=== PATIENT | male | born 1975 | race Caucasian/White ===

== ENCOUNTER 2018-06-16 00:25 | Emergency (ER) | payer OTHER ==
[~2018-06-16] VITALS: Ht 180.3 cm; Wt 68.0 kg
--- OUTSIDE RECORDS SUMMARY | 2018-06-16 00:28 | XMS REPORT | Clinical Summary ---
Author Author [facility] Address Unknown Phone Unavailable Care Team Providers Care Roundsman Name Role Phone Asked, No Pcp PCP Unavailable Allergies Comments Active Allergy Reactions Severity Noted Date Bee Venom Protein (Honey 09/06/2017 Bee) Medications End Date Status Medication Sig Dispensed Refills Start Date 10/06/2017 hydrOXYzine (ATARAX) 25 Take 1 tablet 20 tablet 0 MG tablet (25 mg total) 8 by mouth every 8 (eight) hours as needed for itching for up to 30 days. 09/11/2017 methylPREDNISolone follow 21 tablet 0 (MEDROL DOSEPAK) 4 mg package 8 tablet directions 10/06/2017 famotidine (PEPCID) 20 MG Take 1 tablet 30 tablet 0 tablet (20 mg total) 8 by mouth 2 (two) times a day as needed (allergic reaction) for up to 30 days. Active Problems Not on file Encounters Care Team Description Date Type Specialty Steven Britton MD Itchy skin (Primary Dx); Allergic reaction, initial encounter 09/06/2017 Emergency Emergency Medicine after 06/15/2017 Social History Date Tobacco Use Types Packs/Day Years Used Current Every Day Smoker 0.5 Smokeless Tobacco: Current User Sex Assigned at Date Recorded Not on file Industry Job Start Date Occupation Not on file Not on file Not on file Travel End Travel History Travel Start No recent travel history available. Last Filed Vital Signs Time Taken Vital Sign Reading 09/06/2017 9:31 AM CDT Blood Pressure 117/74 09/06/2017 9:31 AM CDT Pulse 85 09/06/2017 9:31 AM CDT Temperature 36.7 C (98 F) 09/06/2017 9:31 AM CDT Respiratory Rate 15 09/06/2017 9:31 AM CDT Oxygen Saturation 98% - Inhaled Oxygen - Concentration - Weight - - Height - - Body Mass Index - Plan of Treatment Not on file Results Not on fileafter 06/15/2017 Insurance Payer Benefit Subscriber ID Type Phone Address Plan / Group BCBS BCBS OUT xxxxxxxxxxxx PPO OF STATE Advance Directives Patient has advance care planning documents on file. For more information, viv kincaid contact: [facility] [address] [place] [address]
[2018-06-16] MEDS ORDERED: TETRACAINE HCL 0.5% OPTH SOLN 4 ML BTL ONE (01:49)
--- NOTE | 2018-06-16 02:03 | NUR ---
TRANSFER INITIATED TO [facility]
[2018-06-16] MEDS ORDERED: HYDROCODONE/APAP 10MG-325MG TAB PO ONE (02:15)
[2018-06-16 04:51] VITALS: BP 132/79
== END 2018-06-16 04:53 | disposition home or self-care (01) ==
LOC: ER 00:25
DX: H57.11 Ocular pain, right eye (principal); S05.01XA Injury of conjunctiva and corneal abrasion without foreign body, right eye, initial encounter; S05.31XA Ocular laceration without prolapse or loss of intraocular tissue, right eye, initial encounter; Y99.0 Civilian activity done for income or pay
CPT/HCPCS: 99282

== ENCOUNTER → 2018-09-22 | Outpatient (CLI) | payer BC ==
[~2018-09-22] MED LIST: GADOBENATE DIMEGLUMINE 1 ML IV ONE
--- NOTE | 2018-09-22 15:49 | Diagnostic Imaging Report ---
EXAMINATION: MRI of the brain without contrast. HISTORY: Acute aphasia, inability to talk. COMPARISON: None. TECHNIQUE: Sagittal T2; axial DWI, T2, FLAIR, T1-IR, T2 gradient echo; coronal FLAIR. IMAGE QUALITY: Adequate. FINDINGS: Parenchyma: 1. Multiple mostly juxtacortical supratentorial ill-defined T2 and FLAIR hyperintense lesions, the largest one in the left inferior frontal (medial orbitofrontal gyri), measuring approximately 4.5 cm including the edema, with mild associated local mass effect, with sulci effacement, no midline shift. 2. Additional similar dominant lesions (1 to 3 cm diameter) are located in the left greater than right superior/middle frontal gyri, right superior temporal gyrus, left posterior superior/middle temporal gyri, left medial temporal lobe/uncus, left inferior parietal lobule. Some of these lesions present restricted diffusion, particularly the left superior frontal lesion. Smaller mostly juxta cortical FLAIR hyperintense foci are noted. 3. No hemorrhagic, acute or chronic infarcts. Skull: Unremarkable. Vessels: Expected flow voids present in the major arteries and dural sinuses. Extra-axial spaces: No abnormal signal intensity or mass effect. Brain volume: Within normal limits for age. Ventricles: No hydrocephalus or displacement. Foramen magnum: Unremarkable. Sella: Unremarkable. Paranasal / mastoid sinuses: No significant inflammatory disease. IMPRESSION: Multiple supratentorial mostly peripheral FLAIR hyperintense lesions, largest left superior frontal lesion has restricted diffusion. Differential diagnosis would include demyelinating disease (such as tumefactive MS), metastatic disease if the patient has a known primary, versus primary neoplasm such as SPINNER[employer] lymphoma among other causes. A contrast brain MRIs recommended. The findings were discussed with the requesting PA Eneida MISTRY, recommendation to send the patient to the ER and obtained contrast enhanced MRI was discussed. Signed by: Dr. Candelaria Hauser M.D. on 09/22/2018 3:46 PM
--- NOTE | 2018-09-22 16:59 | Diagnostic Imaging Report ---
History: Cannot speak Comparison studies: Precontrast MRI obtained earlier today. Technique: Postcontrast axial, sagittal and coronal T1. Intravenous contrast: 13 cc of MultiHance Findings: Most, but not all, of the T2 FLAIR hyperintense foci on the previous MRI, enhance following the intravenous injection of contrast. The enhancement pattern varies from ill-defined in the left superior frontal white matter (series 2, image 18) to focally intense and amorphous in the left orbitofrontal region (series 2, image 12) to linear periventricular along the margin of the body of the lateral ventricle (series 5, image 7) Two enhancing foci (left parietal and right anterior temporal) enhancement in an incomplete ring fashion which is very classic for an underlying demyelinating process such as multiple sclerosis. Otherwise, no changes compared to the precontrast MRI. IMPRESSION: 1. Most, but not all, of the T2 FLAIR hyperintensities on the previous MRI and hands following the intravenous injection of contrast. The enhancement pattern is variable throughout the brain but too "C" shaped enhancing foci (left parietal and right anterior temporal) strongly indicate this as a demyelinating process. 2. Otherwise, no changes when compared to the precontrast MRI. Signed by: Dr. Florentino Patel M.D. on 09/22/2018 4:56 PM
== END ==
LOC: MRI 13:48
PROVIDERS: ATTEND Family Medicine
DX: R47.01 Aphasia (principal)
CPT/HCPCS: 70551; 70552

== ENCOUNTER → 2018-10-05 | Outpatient (CLI) | payer BC ==
--- NOTE | 2018-10-05 10:37 | Diagnostic Imaging Report ---
History: Possible multiple sclerosis Comparison studies: MRI of the brain 09/22/2018 Technique: Precontrast spine: Sagittal T1, T2 and inversion recovery, axial T1 and T2 cervical and thoracic. Postcontrast axial and sagittal T1 Intravenous contrast: 14 cc of MultiHance Findings: Motion artifact at site sagittal STIR, limits evaluation Cervical spine: Spinal Cord: Normal in size and signal . T2 lesion load: No significant cervical spinal cord lesion. T1 hypointense foci: None. Enhancement: None. Thoracic spine: Spinal Cord: Normal in size and signal from the T1 through the tip of the conus at T12-L1. T2 lesion load:No significant spinal cord lesion. T1 hypointense foci:None. Enhancement: None. Additional comments: Alignment: Normal lordosis. No scoliosis.. Cervicomedullary junction: No abnormalities. The foramen magnum is patent. No Chiari one malformation.. Soft tissues tissues: No signal abnormalities.. Vertebral bodies: No compression fractures from C2 through L2. Incidental findings: Posterior disc osteophyte complexes at C3-4, and C5-6 without significant canal stenosis. Right uncinate process hypertrophy at C5-6 results in moderate right foraminal narrowing. IMPRESSION: 1. No significant cervical or thoracic spinal cord lesions. 2. Moderate right degenerative foraminal narrowing at C5-6. Grossly patent canal and remaining foramina. Signed by: DR Gavin Ramirez M.D. on 10/05/2018 10:33 AM
== END ==
LOC: MRI 07:27
PROVIDERS: ATTEND Psychiatry & Neurology Neurology
DX: G35 Multiple sclerosis (principal)
CPT/HCPCS: 72141; 72157

== ENCOUNTER → 2018-10-09 | Outpatient (CLI) | payer BC ==
[~2018-10-09] MED LIST changes: -GADOBENATE DIMEGLUMINE 1 ML IV ONE; +HYDROCODONE/APAP 5MG-325MG TAB ONE; +LIDOCAINE HCL 1% LOCAL INJ 20 ML VIAL ONE
[2018-10-09 18:57] LABS: TOTAL PROTEIN,CSF 59.8 mg/dL (15-40)
[2018-10-09 20:01] LABS: APPEARANCE,CSF CLEAR (CLEAR); COLOR,CSF COLORLESS (COLORLESS); TUBE NUMBER 3
[2018-10-09 20:02] LABS: WHITE BLOOD CELL,CSF 1 cells/uL (0-5)
[2018-10-12 17:09] LABS: IGG/ALB RATIO CSF 0.11 (0.00-0.25)
[2018-10-13 01:31] LABS: CSF/SERUM ALBUMIN INDEX 8 (0-8); MYELIN BASIC PROTEIN, CSF 8.8 ng/mL (0.0-1.2)
--- NOTE | 2018-10-13 07:35 | Diagnostic Imaging Report ---
EXAMINATION: Fluoroscopically-guided lumbar puncture HISTORY: Multiple sclerosis. TECHNIQUE: medication: None. anesthesia: 1% lidocaine, 5 cc needle: 22 gauge x 5 inch spinal fluoro time: 1.2 minutes DAP: 66.9 microGy-m2 PROCEDURE: After giving informed consent, the patient lay prone on the examination table. The back was prepped and draped in the usual sterile manner, and then 1% lidocaine was infiltrated in the skin. The spinal needle was advanced through the L5-S1 interspace via a left sided approach until CSF was obtained. The opening pressure was 20 cm H20. Approximately 15 mL of fluid was removed and sent to the laboratory for tests ordered by the referring physician. The patient was transferred to the floor in stable condition. FINDINGS: CSF: Clear. IMPRESSION: Fluoroscopically-guided lumbar puncture as above. Signed by: Dr. Zaina Stringer MD on 10/13/2018 7:31 AM
== END ==
LOC: DX 11:37
PROVIDERS: ATTEND Psychiatry & Neurology Neurology
DX: G35 Multiple sclerosis (principal)
CPT/HCPCS: 36415; 62270; 77003; 82040; 82042; 82784; 82945; 83873; 83916; 84157; 84165; 85651; 86592; 87070; 87102; 87116; 87205; 87206 ×2; 88112; 88305; 89051; J2001

== ENCOUNTER → 2018-12-03 | Outpatient (CLI) | payer BC ==
--- NOTE | 2018-12-04 07:57 | Diagnostic Imaging Report ---
History: Lumbar pain, history of lumbar puncture Comparison studies: Lumbar spine x-ray 10/09/2018. Technique: Sagittal and axial T2 , sagittal T1 and IR, axial spin density oblique. Intravenous contrast: None Findings: Number of lumbar vertebral bodies: 5. Alignment: Normal lordosis. Minimal lumbar curvature convex to the left. Soft tissues: No T2 hyperintense inflammatory changes. Paraspinal muscles: Mild nonspecific T2 hyperintense edema in the partially imaged distal thoracic dorsal paraspinal musculature posteriorly. No fatty replaced atrophic changes. Lower thoracic cord: Normal in signal and morphology. The tip of the conus is at L1. Cauda equina: No masses. No arachnoiditis. Vertebrae: No compression fractures, infection or neoplasm. No marrow edema. Degenerative changes: T12-L1: Minimal fatty-replaced marrow endplate changes anteriorly. Patent canal and foramina. L1-L2: Tiny Schmorl's nodes along the endplates. Patent canal and foramina. L2-L3: Minimal fatty replaced marrow endplate changes along the anterior per L2 endplate. Patent canal and foramina. L3-L4: Mildly degenerated disc with loss of T2 disc signal and small symmetric disc bulge without canal or foraminal stenosis. L4-L5: Mildly degenerated disc with mild loss of disc height and loss of T2 disc signal with symmetric disc bulge which does not result in significant canal or foraminal stenosis. L5-S1: Mildly degenerated disc with loss of disc height and loss of T2 disc signal. Asymmetric left disc osteophyte complex and mild facet arthrosis with mild left foraminal stenosis. No significant right foraminal stenosis or stenosis. IMPRESSION: 1. Mildly degenerated disks from L3 to S1. 2. Mild degenerative foraminal stenosis on the left at L5-S1. 3. No canal stenosis or nerve root impingement. 4. Mild nonspecific thoracic dorsal paraspinal muscular edema. Signed by: Dr. Peter Thurston M.D. on 12/04/2018 7:54 AM
== END ==
LOC: MRI 13:53
PROVIDERS: ATTEND Family Medicine
DX: M54.5 Low back pain (principal); G97.1 Other reaction to spinal and lumbar puncture
CPT/HCPCS: 72148

== ENCOUNTER 2019-07-08 15:57 | Emergency (ER) | payer BC, OTHER ==
[~2019-07-08] VITALS: Ht 180.3 cm; Wt 68.0 kg
--- OUTSIDE RECORDS SUMMARY | 2019-07-08 15:59 | XMS REPORT ---
Author Author [facility] Address Unknown Phone Unavailable Care Team Providers Care Hide And Skin Processing Worker Name Role Phone SONI CLARK Unavailable Unavailable Sajan GOODSON Unavailable Unavailable VENKAT CLARK Unavailable Unavailable Problems This patient has no known problems. Allergies, Adverse Reactions, Alerts This patient has no known allergies or adverse reactions. Medications This patient has no known medications. Results Test Description Test Time Test Comments Text Results Atomic Results Result Comments MRI SPINE LUMBAR WO 2018-12-04 07:39:00 [place] [address] Patient Name: SHARMIN TRINIDAD MR #: [id number] : 1975 Age/Sex: 43/M Req #: [id number] Adm Physician: Ordered by: CLARK ANDREW DO Report #: [id number] Location: MRI Room/Bed: Procedure: [id number] MRI/MRI SPINE LUMBAR WO Exam Date: Exam Time: REPORT STATUS: Signed History: Lumbar pain, history of lumbar puncture Comparison studies: Lumbar spine x-ray 10/09/2018. Technique: Sagittal and axial T2 , sagittal T1 and IR, axial spin density oblique. Intravenous contrast: None Findings: Number of lumbar vertebral bodies: 5. Alignment: Normal lordosis. Minimal lumbar curvature convex to the left. Soft tissues: No T2 hyperintense inflammatory changes. Paraspinal muscles: Mild nonspecific T2 hyperintense edema in the partially imaged distal thoracic dorsal paraspinal musculature posteriorly. No fatty replaced atrophic changes. Lower thoracic cord: Normal in signal and morphology. The tip of the conus is at L1. Cauda equina: No masses. No arachnoiditis. Vertebrae: No compression fractures, infection or neoplasm. No marrow edema. Degenerative changes: T12-L1: Minimal fatty-replaced marrow endplate changes anteriorly. Patent canal and foramina. L1-L2: Tiny Schmorl's nodes along the endplates. Patent canal and foramina. L2-L3: Minimal fatty replaced marrow endplate changes along the anterior per L2 endplate. Patent canal and foramina. L3-L4: Mildly degenerated disc with loss of T2 disc signal and small symmetric disc bulge without canal or foraminal stenosis. L4-L5: Mildly degenerated disc with mild loss of disc height and loss of T2 disc signal with symmetric disc bulge which does not result in significant canal or foraminal stenosis. L5-S1: Mildly degenerated disc with loss of disc height and loss of T2 disc signal. Asymmetric left disc osteophyte complex and mild facet arthrosis with mild left foraminal stenosis. No significant right foraminal stenosis or stenosis. IMPRESSION: 1. Mildly degenerated disks from L3 to S1. 2. Mild degenerative foraminal stenosis on the left at L5-S1. 3. No canal stenosis or nerve root impingement. 4. Mild nonspecific thoracic dorsal paraspinal muscular edema. Signed by: Dr. Hoang Thurston M.D. on 12/04/2018 7:54 AM Dictated By: HOANG THURSTON MD 0754 Transcribed By: NJ on 12/04/18 0754 COPY TO: SONI CLARK DO LUMBAR SPINE PUNCTURE 2018-10-09 14:19:00 [place] [address] Patient Name: SHARMIN TRINIDAD MR #: [id number] : 1975 Age/Sex: 43/M Req #: [id number] Adm Physician: Ordered by: BURAK GOODSON MD Report #: [id number] Location: DX Room/Bed: Procedure: [id number] IR/LUMBAR SPINE PUNCTURE Exam Date: 10/09/18 Exam Time: 1300 REPORT STATUS: Signed EXAMINATION: Fluoroscopically-guided lumbar puncture HISTORY: Multiple sclerosis. TECHNIQUE: medication: None. anesthesia: 1% lidocaine, 5 cc needle: 22 gauge x 5 inch spinal fluoro time: 1.2 minutes DAP: 66.9 microGy-m2 PROCEDURE: After giving informed consent, the patient lay prone on the examination table. The back was prepped and draped in the usual sterile manner, and then 1% lidocaine was infiltrated in the skin. The spinal needle was advanced through the L5-S1 interspace via a left sided approach until CSF was obtained. The opening pressure was 20 cm H20. Approximately 15 mL of fluid was removed and sent to the laboratory for tests ordered by the referring physician. The patient was transferred to the floor in stable condition. FINDINGS: CSF: Clear. IMPRESSION: Fluoroscopically-guided lumbar puncture as above. Signed by: Dr. Abisai Young MD on 10/13/2018 7:31 AM Dictated By: ABISAI YOUNG MD 0 Transcribed By: NJ on 10/13/18730 COPY TO: BURAK GOODSON MD MRI SPINE THORACIC WOW 2018-10-05 10:25:00 [place] [address] Patient Name: SHARMIN TRINIDAD MR #: [id number] : 1975 Age/Sex: 43/M Req #: [id number] Adm Physician: Ordered by: BURAK GOODSON MD Report #: [id number] Location: MRI Room/Bed: Procedure: [id number] MRI/MRI SPINE THORACIC WOW Exam Date: Exam Time: REPORT STATUS: Signed History: Possible multiple sclerosis Comparison studies: MRI of the brain 09/22/2018 Technique: Precontrast spine: Sagittal T1, T2 and inversion recovery, axial T1 and T2 cervical and thoracic. Postcontrast axial and sagittal T1 Intravenous contrast: 14 cc of MultiHance Findings: Motion artifact at site sagittal STIR, limits evaluation Cervical spine: Spinal Cord: Normal in size and signal . T2 lesion load: No significant c ervical spinal cord lesion. T1 hypointense foci: None. Enhancement: None. Thoracic spine: Spinal Cord: Normal in size and signal from the T1 through the tip of the conus at T12-L1. T2 lesion load:No significant spinal cord lesion. T1 hypointense foci:None. Enhancement: None. Additional comments: Alignment: Normal lordosis. No scoliosis.. Cervicomedullary junction: No abnormalities. The foramen magnum is patent. No Chiari one malformation.. Soft tissues tissues: No signal abnormalities.. Vertebral bodies: No compression fractures from C2 through L2. Incidental findings: Posterior disc osteophyte complexes at C3-4, and C5-6 without significant canal stenosis. Right uncinate process hypertrophy at C5-6 results in moderate right foraminal narrowing. IMPRESSION: 1. No significant cervical or thoracic spinal cord lesions. 2. Moderate right degenerative foraminal narrowing at C5-6. Grossly patent canal and remaining foramina. Signed by: DR Gavin Ramirez M.D. on 10/05/2018 10:33 AM Dictated By: GAVIN TRAORE MD 1033 Transcribed By: NJ on 10/05/18 1033 COPY TO: BURAK GOODSON MD MRI SPINE CERVICAL WO 2018-10-05 10:25:[address] [place], [place] [address] Patient Name: SHARMIN TRINIDAD MR #: [id number] : 1975 [facility] 43[id number] Req #: [id number] [facility] Physician: Ordered by: BURAK GOODSON MD Report #: [id number] Location: MRI Room/Bed: Procedure: [id number] MRI/MRI SPINE CERVICAL WO Exam Date: Exam Time: REPORT STATUS: Signed History: Possible multiple sclerosis Comparison studies: MRI of the brain 09/22/2018 Technique: Precontrast spine: Sagittal T1, T2 and inversion recovery, axial T1 and T2 cervical and thoracic. Postcontrast axial and sagittal T1 Intravenous contrast: 14 cc of MultiHance Findings: Motion artifact at site sagittal STIR, limits evaluation Cervical spine: Spinal Cord: Normal in size and signal . T2 lesion load: No significant ce rvical spinal cord lesion. T1 hypointense foci: None. Enhancement: None. Thoracic spine: Spinal Cord: Normal in size and signal from the T1 through the tip of the conus at T12-L1. T2 lesion load:No significant spinal cord lesion. T1 hypointense foci:None. Enhancement: None. Additional comments: Alignment: Normal lordosis. No scoliosis.. Cervicomedullary junction: No abnormalities. The foramen magnum is patent. No Chiari one malformation.. Soft tissues tissues: No signal abnormalities.. Vertebral bodies: No compression fractures from C2 through L2. Incidental findings: Posterior disc osteophyte complexes at C3-4, and C5-6 without significant canal stenosis. Right uncinate process hypertrophy at C5-6 results in moderate right foraminal narrowing. IMPRESSION: 1. No significant cervical or thoracic spinal cord lesions. 2. Moderate right degenerative foraminal narrowing at C5-6. Grossly patent canal and remaining foramina. Signed by: DR Gavin Ramirez M.D. on 10/05/2018 10:33 AM Dictated By: GAVIN TRAORE MD 103 Transcribed By: NJ on 10/05/18 103 COPY TO: BURAK GOODSON MD MRI BRAIN W 2018-09-22 16:42:00 [place] [id number] Patient Name: SHARMIN TRINIDAD MR #: [id number] : 1975 Age/Sex: 43/M Req #: [id number] Adm Physician: Ordered by: VENKAT CLARK DO Report #: [id number] Location: MRI Room/Bed: Procedure: [id number] MRI/MRI BRAIN W Exam Date: Exam Time: REPORT STATUS: Signed History: Cannot speak Comparison studies: Precontrast MRI obtained earlier today. Technique: Postcontrast axial, sagittal and coronal T1. Intravenous contrast: 13 cc of MultiHance Findings: Most, but not all, of the T2 FLAIR hyperintense foci on the previous MRI, enhance following the intravenous injection of contrast. The enhancement pattern varies from ill- defined in the left superior frontal white matter (series 2, image 18) to foc ally intense and amorphous in the left orbitofrontal region (series 2, image 12) to linear periventricular along the margin of the body of the lateral ventricle (series 5, image 7) Two enhancing foci (left parietal and right anterior temporal) enhancement in an incomplete ring fashion which is very classic for an underlying demyelinating process such as multiple sclerosis. Otherwise, no changes compared to the precontrast MRI. IMPRESSION: 1. Most, but not all, of the T2 FLAIR hyperintensities on the previous MRI and hands following the intravenous injection of contrast. The enhancement pattern is variable throughout the brain but too "C" shaped enhancing foci (left parietal and right anterior temporal) strongly indicate this as a demyelinating process. 2. Otherwise, no changes when compared to the precontrast MRI. Signed by: Dr. Florentino Patel M.D. on 09/22/2018 4:56 PM Dictated By: FLORENTINO PATEL MD, MD 55 Transcribed By: NJ on 09/22/181655 COPY TO: VENKAT CLARK DO MRI BRAIN WO 2018-09-22 15:30:00 [place] [address] Patient Name: SHARMIN TRINIDAD MR #: [id number] : 1975 Age/Sex: 43/M Req #: [id number] Adm Physician: Ordered by: VENKAT CLARK DO Report #: [id number] Location: MRI Room/Bed: Procedure: [id number] MRI/MRI BRAIN WO Exam Date: Exam Time: REPORT STATUS: Signed EXAMINATION: MRI of the brain without contrast. HISTORY: Acute aphasia, inability to talk. COMPARISON: None. TECHNIQUE: Sagittal T2; axial DWI, T2, FLAIR, T1-IR, T2 gradient echo; coronal FLAIR. IMAGE QUALITY: Adequate. FINDINGS: Parenchyma: 1. Multiple mostly juxtacortical supratentorial ill-defined T2 and FLAIR hyperintense lesions, the largest one in the left inferior frontal (medial orbitofrontal gyri), measuring approximately 4.5 cm including the edema, with mild associated local mass effect, with sulci effacement, no midline shift. 2. Additional similar dominant lesions (1 to 3 cm diameter) are located in the left greater than right superior/middle frontal gyri, right superior temporal gyrus, left posterior superior/middle temporal gyri, left medial temporal lobe/uncus, left inferior parietal lobule. Some of these lesions present restricted diffusion, particularly the left superior frontal lesion. Smaller mostly juxta cortical FLAIR hyperintense foci are noted. 3. No hemorrhagic, acute or chronic infa rcts. Skull: Unremarkable. Vessels: Expected flow voids present in the major arteries and dural sinuses. Extra-axial spaces: No abnormal signal intensity or mass effect. Brain volume: Within normal limits for age. Ventricles: No hydrocephalus or displacement. Foramen magnum: Unremarkable. Sella: Unremarkable. Paranasal / mastoid sinuses: No significant inflammatory disease. IMPRESSION: Multiple supratentorial mostly peripheral FLAIR hyperintense lesions, largest left superior frontal lesion has restricted diffusion. Differential diagnosis would include demyelinating disease (such as tumefactive MS), metastatic disease if the patient has a known primary, versus primary neoplasm such as NAIL [employer]CH lymphoma among other causes. A contrast brain MRIs recommended. The findings were discussed with the requesting PA Eneida MISTRY, recommendation to send the patient to the ER and obtained contrast enhanced MRI was discussed. Signed by: Dr. Candelaria Hauser M.D. on 09/22/2018 3:46 PM Dictated By: CANDELARIA HAUSER MD 1547 Transcribed By: NJ on 09/22/18 1549 COPY TO: VENKAT CLARK DO
[2019-07-08] MEDS ORDERED: SODIUM CHLORIDE 0.9% 1000ML 1,000 ML IV STA ×2 (16:12→17:51)
[2019-07-08] MEDS ORDERED: ONDANSETRON HCL INJ 2MG/ML 2ML 2 MG/ML VIAL IV STA (16:12)
[2019-07-08] MEDS ORDERED: SODIUM CHLORIDE 0.9% 1000ML 1,000 ML ONE (16:15)
[2019-07-08] MEDS ORDERED: ACETAMINOPHEN 325 MG TAB PO ONE (16:15)
[2019-07-08] MEDS ORDERED: ONDANSETRON HCL INJ 2MG/ML 2ML 2 MG/ML VIAL ONE (16:16)
[2019-07-08 16:29] LABS: BASOPHILS % 0.4 % (0.0-1.0); EOSINOPHILS % 0.7 % (0.0-6.0); HEMATOCRIT 40.5 % (38.2-49.6); HEMOGLOBIN 13.9 g/dL (14.0-18.0); LYMPHOCYTES # (AUTO) 0.5 (1.0-3.2); LYMPHOCYTES % 9.5 % (18.0-39.1); MEAN CORPUSCULAR HEMOGLOBIN 28.8 pg (28-32); MEAN CORPUSCULAR HGB CONC 34.3 g/dL (31-35); MONOCYTES # (AUTO) 0.9 (0.2-0.8); MONOCYTES % 16.5 % (4.4-11.3); NEUTROPHILS # (AUTO) 3.9 (2.1-6.9); NEUTROPHILS % 72.7 % (38.7-80.0); PLATELET COUNT 191 x10e3/uL (140-360); RED BLOOD COUNT 4.82 x10e6/uL (4.3-5.7); RED CELL DISTRIBUTION WIDTH 13.2 % (11.7-14.4)
[2019-07-08] MEDS ORDERED: ACETAMINOPHEN 325 MG TAB ONE (16:41)
[2019-07-08 16:47] LABS: STREPTOCOCCUS GRP A ANTIGEN NEGATIVE (NEGATIVE)
[2019-07-08 16:53] LABS: ALANINE AMINOTRANSFERASE 28 IU/L (0-55); ALBUMIN 4.1 g/dL (3.5-5.0); ALBUMIN/GLOBULIN RATIO 1.5 (0.8-2.0); ALKALINE PHOSPHATASE 69 IU/L (40-150); AMYLASE 104 U/L (25-125); ANION GAP 15.6 mmol/L (8-16); BLOOD UREA NITROGEN 18 mg/dL (7-26); BUN/CREATININE RATIO 22 (6-25); CALCIUM 8.8 mg/dL (8.4-10.2); CARBON DIOXIDE 22 mmol/L (22-29); CHLORIDE 103 mmol/L (98-107); CREATININE, SERUM 0.83 mg/dL (0.72-1.25); EST GLOMERULAR FILTRATION RATE > 60 ML/MIN (60-); GLUCOSE 93 mg/dL (74-118); LIPASE 21 U/L (8-78); POTASSIUM 3.6 mmol/L (3.5-5.1); SODIUM 137 mmol/L (136-145)
[2019-07-08 16:58] LABS: INFLUENZAE A&B ANTIGEN (RAPID) POSITIVE FLU A (NEGATIVE)
[2019-07-08] MEDS ORDERED: PANTOPRAZOL 40MG/SOD CHL 0.9% 50 ML IV SCH (17:00)
--- NOTE | 2019-07-08 17:09 | Diagnostic Imaging Report ---
EXAMINATION: CHEST 2 VIEWS INDICATION: Cough, fever COMPARISON: None FINDINGS: LINES/TUBES:None LUNGS:The lungs are well-inflated. No focal consolidation or pulmonary edema. PLEURA:No pleural effusion or pneumothorax. MEDIASTINUM:The cardiomediastinal silhouette appears normal in size and shape. BONES/SOFT TISSUES:No acute osseous injury. ABDOMEN:No free air under the diaphragm. IMPRESSION: No focal pneumonia or pulmonary edema. Signed by: Dayana Murray MD on 07/08/2019 5:06 PM
[2019-07-08] MEDS ORDERED: IBUPROFEN 400 MG TAB PO NR (18:00)
== END 2019-07-08 18:35 | disposition home or self-care (01) ==
LOC: ER 15:57
DX: R50.9 Fever, unspecified (principal); R05 Cough; R11.2 Nausea with vomiting, unspecified; R10.84 Generalized abdominal pain; J09.X2 Influenza due to identified novel influenza A virus with other respiratory manifestations; G35 Multiple sclerosis
CPT/HCPCS: 36415; 71046; 80053; 82150; 83518; 83690; 85025; 87070; 87400; 99283; J2405; J7030